=== PATIENT | male | born 2000 | race Caucasian/White ===

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

== ENCOUNTER 2020-01-21 13:16 | Emergency (ER) | payer BC, SELFPAY ==
[~2020-01-21] VITALS: Ht 167.6 cm; Wt 85.7 kg
[2020-01-21 13:21] VITALS: BP_SYST 152
--- NOTE | 2020-01-21 13:27 | NUR ---
Patient to ER bed 3 to gown for evaluation. Side rails up.
--- NOTE | 2020-01-21 13:31 | NUR ---
MD KOEHLER AT BEDSIDE ASSESSING PT.
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
[2020-01-21] MEDS ORDERED: DIPH-TET-PERTUS Vaccine 0.5 ML VIAL (ADACEL) I.M. ONE (13:45)
[2020-01-21 13:48] VITALS: BP_SYST 142
== END 2020-01-21 13:58 | disposition home or self-care (01) ==
LOC: SED 13:16
DX: S81.832A Puncture wound without foreign body, left lower leg, initial encounter (principal); W54.0XXA Bitten by dog, initial encounter; Y93.89 Activity, other specified; Y92.89 Other specified places as the place of occurrence of the external cause; Y99.8 Other external cause status
CPT/HCPCS: 90715; 99283

== ENCOUNTER 2020-03-05 17:30 | Emergency (ER) | payer BC ==
[~2020-03-05] VITALS: Ht 182.9 cm; Wt 72.6 kg
--- NOTE | 2020-03-05 17:38 | NUR ---
Patient to ER bed 07 to gown for evaluation. Side rails up. Report given to DIA KOO.
[2020-03-05 17:41] VITALS: BP_SYST 136
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
[2020-03-05] MEDS ORDERED: NACL 0.9% 1,000 ML IV ONE (17:45)
[2020-03-05] MEDS ORDERED: MIDAZOLAM HCL 5 MG/5 ML VIAL IVP ONE (17:45)
[2020-03-05] MEDS ORDERED: KETAMINE 30 MG/3 ML SYRINGE IVP ONE (17:45)
--- NOTE | 2020-03-05 17:47 | NUR ---
Patient taken to X-ray as ordered by Dr. Zamudio, in stable condition.
--- NOTE | 2020-03-05 17:49 | NUR ---
Patient is back from X-ray, in stable condition.
--- NOTE | 2020-03-05 18:09 | NUR ---
ER at bedside examining patient. Discussing procedure with Patient. All questions answered by MD. Consent for Anesthesia and consent for special diagnositic or therapeutic procedure signed at bedside by patient and MD, witnessed by myself.
[2020-03-05] MEDS ORDERED: KETOROLAC TROMETHAMINE 30 MG VIAL IVP ONE (18:15)
--- NOTE | 2020-03-05 19:20 | NUR ---
Report to Leah ALVARES
--- NOTE | 2020-03-05 19:22 | NUR ---
RECEIVED REPORT FROM DIA KOO FOR CONTINUATION OF CARE.
--- NOTE | 2020-03-05 19:30 | NUR ---
PATIENT ALERT AND ORIENTED X4, DENIES PAIN, EVEN AND UNLABORED BREATHING. VITAL SIGNS STABLE. WILL CONTINUE TO MONITOR. PT UNABLE TO GIVE URINE SAMPLE AT THIS TIME.
--- NOTE | 2020-03-05 20:00 | NUR ---
CATIA COLLAZO SPEAKING WITH PATIENTS FATHER.
[2020-03-05 20:05] VITALS: BP_SYST 136
--- NOTE | 2020-03-05 20:05 | NUR ---
Patient given written and verbal discharge instructions and verbalizes understanding. ER MD discussed with patient the results and treatment provided. Patient in stable condition. ID arm band removed. IV catheter removed intact and dressing applied, no active bleeding. Rx of MOTRIN given. Patient educated on pain management and to follow up with PMD. Pain Scale 0/10. Opportunity for questions provided and answered. Medication side effect fact sheet provided.
== END 2020-03-05 20:05 | disposition home or self-care (01) ==
LOC: SED 17:30
DX: S43.014A Anterior dislocation of right humerus, initial encounter (principal); R03.0 Elevated blood-pressure reading, without diagnosis of hypertension; V19.9XXA Pedal cyclist (driver) (passenger) injured in unspecified traffic accident, initial encounter; Y93.89 Activity, other specified; Y92.89 Other specified places as the place of occurrence of the external cause; Y99.8 Other external cause status
CPT/HCPCS: 73020; 73030; 96361; 96374; 99152; 99285; J1885; J2250; J7030

== ENCOUNTER 2021-03-30 20:44 | Emergency (ER) | payer BC ==
[~2021-03-30] VITALS: Ht 182.9 cm; Wt 74.8 kg
[2021-03-30 20:46] VITALS: BP_SYST 135
--- NOTE | 2021-03-30 20:46 | NUR ---
Patient to ER bed HALLWAY 1 to gown for evaluation. Side rails up.
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
--- NOTE | 2021-03-30 21:19 | NUR ---
KISHAN Shane at bedside examining patient.
[2021-03-30] MEDS ORDERED: LORA10TA7 PO (21:26)
[2021-03-30] MEDS ORDERED: PRED20TA PO (21:26)
[2021-03-30] MEDS ORDERED: LORATADINE 10 MG TABLET PO ONE (21:30)
[2021-03-30] MEDS ORDERED: prednisoLONE 15 MG/5 ML UDC PO ONE (21:30)
[2021-03-30 21:59] VITALS: BP_SYST 135
--- NOTE | 2021-03-30 22:00 | NUR ---
Patient given written and verbal discharge instructions and verbalizes understanding. DR. FORTINO HOLLEY MD discussed with patient the results and treatment provided. Patient in stable condition. ID arm band removed. Rx of CLARITIN, PREDNISONE given. Patient educated on pain management and to follow up with PMD. Pain Scale 0/10. Opportunity for questions provided and answered. Medication side effect fact sheet provided.
== END 2021-03-30 22:00 | disposition home or self-care (01) ==
LOC: SED 20:44
DX: L25.0 Unspecified contact dermatitis due to cosmetics (principal)
CPT/HCPCS: 99283

== ENCOUNTER 2021-04-29 18:39 | Emergency (ER) | payer BC ==
[~2021-04-29] VITALS: Ht 182.9 cm; Wt 68.0 kg
[~2021-04-29 18:39] MED LIST: LORA10TA7 PO; PRED20TA PO
[2021-04-29 18:48] VITALS: BP_SYST 134
--- NOTE | 2021-04-29 18:51 | NUR ---
Patient triaged and placed in waiting room. VSS and patient appears in no acute distress at this time. Accompanied by MOTHER, awaiting available bed, and MD notified of need for MSE.
--- NOTE | 2021-04-30 00:50 | NUR ---
Called pt, no answer. Patient left without being seen. ER MD aware
== END 2021-04-30 00:50 | disposition left against medical advice (07) ==
LOC: SED 18:39
DX: R20.0 Anesthesia of skin (principal); Z53.21 Procedure and treatment not carried out due to patient leaving prior to being seen by health care provider